=== PATIENT | female | born 1970 | race Caucasian/White ===

== ENCOUNTER 2022-01-17 19:37 | Emergency (ER) | payer OTHER ==
[~2022-01-17] VITALS: Ht 160 cm; Wt 111.1 kg
[~2022-01-17 19:37] MED LIST: CARAFATE SU1 G/10 ML; PRILOSEC; Z.0.BENTYL20 MG; Z.0.DEXILANT60 MG; Z.1.COLESTIPOL HCL1 PO
[2022-01-17] MEDS ORDERED: LORAZEPAM INJ 2 MG/ML VIAL IV ONE (19:45)
[2022-01-17 19:52] LABS: BASOPHILS % 0.4 % (0.0-1.0); EOSINOPHILS # (AUTO) 0.2 (0.0-0.4); EOSINOPHILS % 1.5 % (0.0-6.0); HEMATOCRIT 44.8 % (34.2-44.1); LYMPHOCYTES # (AUTO) 3.8 (1.0-3.2); LYMPHOCYTES % 37.4 % (18.0-39.1); MEAN CORPUSCULAR HGB CONC 31.3 g/dL (31-35); MEAN CORPUSCULAR VOLUME 86.5 fL (81-99); MONOCYTES # (AUTO) 0.6 (0.2-0.8); MONOCYTES % 5.9 % (4.4-11.3); NEUTROPHILS # (AUTO) 5.5 (2.1-6.9); NEUTROPHILS % 54.5 % (38.7-80.0); PLATELET COUNT 301 x10e3/uL (140-360); RED BLOOD COUNT 5.18 x10e6/uL (3.6-5.1); RED CELL DISTRIBUTION WIDTH 14.7 % (11.7-14.4)
[2022-01-17 20:14] LABS: ALANINE AMINOTRANSFERASE 76 IU/L (0-55); ALBUMIN 3.5 g/dL (3.5-5.0); ALBUMIN/GLOBULIN RATIO 0.7 (0.8-2.0); ALKALINE PHOSPHATASE 99 IU/L (40-150); ANION GAP 18.2 mmol/L (8-16); BLOOD UREA NITROGEN 11 mg/dL (7-26); BUN/CREATININE RATIO 10 (6-25); CARBON DIOXIDE 20 mmol/L (22-29); CHLORIDE 106 mmol/L (98-107); CREATINE KINASE 82 IU/L (29-168); CREATININE, SERUM 1.06 mg/dL (0.57-1.11); GLUCOSE 155 mg/dL (74-118); POTASSIUM 4.2 mmol/L (3.5-5.1); SODIUM 140 mmol/L (136-145)
[2022-01-17 21:06] LABS: CLARITY,URINE CLEAR (CLEAR); COLOR,URINE YELLOW (YELLOW); KETONES,URINE NEGATIVE (NEGATIVE); LEUKOCYTE ESTERASE ,URINE NEGATIVE (NEGATIVE); NITRITE,URINE NEGATIVE (NEGATIVE); PROTEIN,URINE DIPSTICK NEGATIVE (NEGATIVE); URINE UROBILINOGEN 0.2 mg/dL (0.2 - 1)
[2022-01-17 21:11] LABS: AMPHETAMINES SCREEN,URINE NEGATIVE (NEGATIVE); BENZODIAZEPINES SCREEN,URINE NEGATIVE (NEGATIVE); PHENCYCLIDINE SCREEN,URINE NEGATIVE (NEGATIVE)
[2022-01-17] MEDS ORDERED: BENZTROPINE MESYLATE 1 MG/ML IM ONE (21:45)
[2022-01-17] MEDS ORDERED: DIPHENHYDRAMINE HCL INJ 50 MG/ML VIAL IV ONE (21:45)
[2022-01-17] MEDS ORDERED: DIPHENHYDRAMINE HCL INJ 50 MG/ML VIAL ONE (22:00)
[2022-01-17] MEDS ORDERED: IOPAMIDOL 370 MG/ML 100 ML INFUS..BTL INJ ONE (22:45)
[2022-01-17] MEDS ORDERED: SODIUM CHLORIDE 0.9% 1000ML 1,000 ML IV ONE (22:45)
[2022-01-18 03:51] VITALS: BP 121/63
== END 2022-01-18 03:40 | disposition other institution (70) ==
LOC: ER 19:40
DX: R41.82 Altered mental status, unspecified (principal); F06.1 Catatonic disorder due to known physiological condition; I10 Essential (primary) hypertension; Z20.822 Contact with and (suspected) exposure to COVID-19; Z87.19 Personal history of other diseases of the digestive system
CPT/HCPCS: 36415; 70496; 71045; 80053; 80307; 81001; 82550; 82553; 84484; 85025; 99284; J0515; J1200; Q9967; U0002